=== PATIENT | male | born 1950 | race Caucasian/White ===

== ENCOUNTER 2018-03-19 08:43 | Outpatient (REF) | payer MEDICARE, SELFPAY ==
[2018-03-19 21:35] LABS: Cholesterol 165 mg/dL (50-200); HDL Cholesterol 70 mg/dL (40-60); LDL CHOLESTEROL 90 mg/dL (<100); Triglyceride 39 mg/dL (30-150)
== END 2018-03-19 08:44 ==
LOC: NCHCN 08:43
PROVIDERS: PCP Internal Medicine; Visit Provider Internal Medicine
DX: E78.5 Hyperlipidemia, unspecified (principal)
CPT/HCPCS: 80061; 83721

== ENCOUNTER 2018-06-25 10:23 | Outpatient (REF) | payer MEDICARE, SELFPAY ==
[2018-06-25 22:55] LABS: Anion Gap 6.6 mmol/L (3-11); BUN 22 mg/dL (7-18); CO2 29.4 mmol/L (21.0-32.0); CREATININE 1.06 mg/dL (0.70-1.30); Chloride 107 mmol/L (98-107); Glucose 86 mg/dL (70-100); Potassium 4.6 mmol/L (3.5-5.1); Sodium 143 mmol/L (136-145)
== END 2018-06-25 10:43 ==
LOC: NCHCN 10:23
PROVIDERS: PCP Internal Medicine; Visit Provider Internal Medicine
DX: I10 Essential (primary) hypertension (principal)
CPT/HCPCS: 80048

== ENCOUNTER 2019-01-14 10:13 | Outpatient (REF) | payer MEDICARE, SELFPAY ==
[2019-01-14 20:52] LABS: Abs Immature Grans 0.01 k/cumm (0.0-0.09); Absolute Basophil Count 0.03 k/cumm (0.0-0.2); Absolute Eosinophil Count 0.15 k/cumm (0.0-0.7); Absolute Monocyte Count 0.51 k/cumm (0.11-0.7); Absolute Neutrophil Count 3.56 k/cumm (1.2-6.7); Basophils % 0.5; Eosinophils % 2.7; HCT 40.2 % (40.0-50.0); HGB 13.4 g/dL (13.5-17.5); Immature Grans % 0.2; Lymphocytes % 24.7; Mean Corp. HGB Concentration 33.3 g/dL (32.0-36.0); Mean Corpuscular Hemoglobin 34.8 pg (27.0-33.0); Mean Corpuscular Volume 104.4 fL (80-95); Mean Platelet Volume 10.5 fL (8.0-11.0); Neutrophils % 62.9; Platelet Count 229 x1000/uL (130-400); RBC 3.85 m/cumm (4.50-6.00); RBC Distribution Width 13.4 % (11.8-14.1); White Blood Cell Count 5.66 k/cumm (4.4-10.8)
[2019-01-14 21:01] LABS: TSH 0.77 uIU/mL (0.358-3.74)
== END 2019-01-14 10:33 ==
LOC: NCHCN 10:13
PROVIDERS: PCP Internal Medicine; Visit Provider Internal Medicine
DX: R53.83 Other fatigue (principal)
CPT/HCPCS: 84443; 85025

== ENCOUNTER 2019-01-28 08:15 | Outpatient (REF) | payer MEDICARE, SELFPAY ==
[2019-01-28 22:16] LABS: Iron 53 ug/dL (50-175); Total Iron Binding Capacity 306 ug/dL (250-450); Transferrin Sat 17 % (20-55)
[2019-01-28 23:02] LABS: Ferritin 129 ng/mL (8-388); Vitamin B12 707 pg/mL (193-986)
== END 2019-01-28 08:35 ==
LOC: NCHCN 08:15
PROVIDERS: PCP Internal Medicine; Visit Provider Internal Medicine
DX: D64.9 Anemia, unspecified (principal)
CPT/HCPCS: 82607; 82728; 83540; 83550

== ENCOUNTER 2019-02-20 12:27 | Outpatient (REF) | payer MEDICARE, SELFPAY ==
[2019-02-20 21:37] LABS: HCT 38.9 % (40.0-50.0); HGB 13.3 g/dL (13.5-17.5); Mean Corp. HGB Concentration 34.2 g/dL (32.0-36.0); Mean Corpuscular Hemoglobin 34.9 pg (27.0-33.0); Mean Corpuscular Volume 102.1 fL (80-95); Mean Platelet Volume 10.5 fL (8.0-11.0); Platelet Count 221 x1000/uL (130-400); RBC 3.81 m/cumm (4.50-6.00); RBC Distribution Width 12.2 % (11.8-14.1); White Blood Cell Count 5.88 k/cumm (4.4-10.8)
[2019-02-20 21:44] LABS: Iron 133 ug/dL (50-175)
[2019-02-20 21:46] LABS: ALT 37 U/L (12-78); AST 28 U/L (15-37); Albumin 3.9 g/dL (3.4-5.0); Alkaline Phosphatase 67 U/L (46-116); Anion Gap 8.5 mmol/L (3-11); BUN 26 mg/dL (7-18); Bilirubin, Total 0.7 mg/dL (0.2-1.0); CO2 25.5 mmol/L (21.0-32.0); CREATININE 1.19 mg/dL (0.70-1.30); Calcium 9.2 mg/dL (8.5-10.1); Chloride 105 mmol/L (98-107); Glucose 125 mg/dL (70-100); Sodium 139 mmol/L (136-145); Total Protein 6.7 g/dL (6.4-8.2)
[2019-02-22 22:01] LABS: Tissue Transglutaminase Ab IgA <1.2 U/mL
== END 2019-02-20 12:47 ==
LOC: NCHCN 12:27
PROVIDERS: PCP Internal Medicine; Visit Provider Internal Medicine
DX: D64.9 Anemia, unspecified (principal); R19.7 Diarrhea, unspecified
CPT/HCPCS: 80053; 85027; 87329; 83516; 83540

== ENCOUNTER 2019-10-17 14:08 | Outpatient (REF) | payer MEDICARE, SELFPAY ==
[2019-10-17 20:53] LABS: Abs Immature Grans 0.01 k/cumm (0.0-0.09); Absolute Basophil Count 0.04 k/cumm (0.0-0.2); Absolute Eosinophil Count 0.22 k/cumm (0.0-0.7); Absolute Monocyte Count 0.73 k/cumm (0.11-0.7); Absolute Neutrophil Count 2.92 k/cumm (1.2-6.7); Basophils % 0.7; Eosinophils % 3.8; HCT 38.6 % (40.0-50.0); Immature Grans % 0.2 %; Lymphocytes % 31.5; Mean Corp. HGB Concentration 33.7 g/dL (32.0-36.0); Mean Corpuscular Hemoglobin 34.9 pg (27.0-33.0); Mean Corpuscular Volume 103.8 fL (80-95); Monocytes % 12.8; Platelet Count 250 x1000/uL (130-400); RBC 3.72 m/cumm (4.50-6.00); RBC Distribution Width 12.9 % (11.8-14.1); White Blood Cell Count 5.72 k/cumm (4.4-10.8)
[2019-10-17 21:00] LABS: Anion Gap 8.2 mmol/L (3-11); BUN 37 mg/dL (7-18); CO2 25.8 mmol/L (21.0-32.0); CREATININE 1.49 mg/dL (0.70-1.30); Calcium 8.6 mg/dL (8.5-10.1); Chloride 104 mmol/L (98-107); Estimated GFR 46.63 (mL/min/1.73m2); Glucose 89 mg/dL (74-106); Sodium 138 mmol/L (136-145)
[2019-10-17 21:38] LABS: Hemoglobin A1C 5.8 % (3.8-5.6)
[2019-10-21 10:01] LABS: PSA, Screening 1.3 ng/mL (0.0-6.5)
== END 2019-10-17 14:28 ==
LOC: NCHCN 14:08
PROVIDERS: PCP Internal Medicine; Visit Provider Internal Medicine
DX: D53.9 Nutritional anemia, unspecified (principal); R73.9 Hyperglycemia, unspecified; I10 Essential (primary) hypertension; Z12.5 Encounter for screening for malignant neoplasm of prostate
CPT/HCPCS: 80048; 84153; 83036; 85025

== ENCOUNTER 2019-10-21 09:41 | Outpatient (REF) | payer MEDICARE, SELFPAY ==
[2019-10-22 10:08] LABS: Anion Gap 8.6 mmol/L (3-11); BUN 32 mg/dL (7-18); CO2 27.4 mmol/L (21.0-32.0); CREATININE 1.29 mg/dL (0.70-1.30); Calcium 8.9 mg/dL (8.5-10.1); Chloride 106 mmol/L (98-107); Estimated GFR 55.06 (mL/min/1.73m2); Glucose 91 mg/dL (74-106); Potassium 4.6 mmol/L (3.5-5.1); Sodium 142 mmol/L (136-145)
== END 2019-10-21 10:01 ==
LOC: NCHCN 09:41
PROVIDERS: PCP Internal Medicine; Visit Provider Internal Medicine
DX: E87.5 Hyperkalemia (principal)
CPT/HCPCS: 80048

== ENCOUNTER 2020-10-05 16:06 | Outpatient (REF) | payer MEDICARE, SELFPAY ==
[2020-10-05 13:48] LABS: ALT 37 U/L (16-63); AST 29 U/L (15-37); Albumin 3.8 g/dL (3.4-5.0); Alkaline Phosphatase 59 U/L (46-116); Anion Gap 5.9 mmol/L (3-11); BUN 26 mg/dL (7-18); Bilirubin, Total 0.4 mg/dL (0.2-1.0); CO2 27.1 mmol/L (21.0-32.0); CREATININE 1.2 mg/dL (0.70-1.30); Calculated LDL 106 mg/dL (<100); Chloride 106 mmol/L (98-107); Cholesterol 180 mg/dL (<200); Estimated GFR 59.68 (mL/min/1.73m2); Glucose 149 mg/dL (74-106); HDL Cholesterol 63 mg/dL (40-60); Potassium 4.4 mmol/L (3.5-5.1); Sodium 139 mmol/L (136-145); Total Protein 6.5 g/dL (6.4-8.2); Triglyceride 56 mg/dL (<150)
[2020-10-05 13:49] LABS: Hemoglobin A1C 5.5 % (<5.7)
== END 2020-10-05 16:07 | disposition home or self-care (01) ==
LOC: NCHCN 16:06
PROVIDERS: PCP Internal Medicine; Visit Provider Internal Medicine
DX: R73.03 Prediabetes (principal); E87.5 Hyperkalemia; I10 Essential (primary) hypertension; E78.5 Hyperlipidemia, unspecified
CPT/HCPCS: 80053; 80061; 83036

== ENCOUNTER 2022-10-24 13:28 | Outpatient (REF) | payer MEDICARE, SELFPAY ==
[2022-10-24 15:42] LABS: HCT 40.8 % (40.0-50.0); HGB 13.9 g/dL (13.5-17.5); MCH 35.3 pg (27.0-33.0); MCHC 34.1 % (32.0-36.0); MCV 104 fL (80-95); MPV 10.2 fL (8.0-11.0); Platelet Count 253 10^3/uL (130-400); RBC 3.94 10^6/uL (4.36-5.78); RDW 12.8 % (11.8-14.1); RDW-SD 49.5 fL; WBC 8.91 10^3/uL (4.4-10.8)
[2022-10-24 16:08] LABS: Hemoglobin A1C 5.5 % (<5.7)
[2022-10-24 16:48] LABS: Anion Gap 8.1 mmol/L (3-11); BUN 21 mg/dL (7-18); CO2 26.9 mmol/L (21.0-32.0); CREATININE 1.2 mg/dL (0.70-1.30); Calcium 9.4 mg/dL (8.5-10.1); Calculated LDL 145 mg/dL (<100); Chloride 105 mmol/L (98-107); Cholesterol 225 mg/dL (<200); Estimated GFR 63.85 (mL/min/1.73m2); Glucose 92 mg/dL (74-106); HDL Cholesterol 62 mg/dL (40-60); Potassium 4.4 mmol/L (3.5-5.1); Sodium 140 mmol/L (136-145); Triglyceride 93 mg/dL (<150)
== END 2022-10-24 13:29 | disposition home or self-care (01) ==
LOC: NCHCN 13:28
PROVIDERS: PCP Internal Medicine; Visit Provider Internal Medicine
DX: D53.9 Nutritional anemia, unspecified (principal); I10 Essential (primary) hypertension; R73.03 Prediabetes; E78.5 Hyperlipidemia, unspecified
CPT/HCPCS: 80048; 80061; 85027; 83036

== ENCOUNTER 2023-04-18 13:23 | Outpatient (REF) | payer MEDICARE, SELFPAY ==
[2023-04-18 17:41] LABS: Calculated LDL 133 mg/dL (<100); Cholesterol 214 mg/dL (<200); HDL Cholesterol 67 mg/dL (40-60); Triglyceride 74 mg/dL (<150)
== END 2023-04-18 13:24 | disposition home or self-care (01) ==
LOC: NCHCN 13:23
PROVIDERS: PCP Internal Medicine; Visit Provider Internal Medicine
DX: E78.5 Hyperlipidemia, unspecified (principal)
CPT/HCPCS: 80061

== ENCOUNTER 2023-11-03 15:04 | Outpatient (REF) | payer MEDICARE, SELFPAY ==
[2023-11-03 14:38] LABS: HCT 40.7 % (40.0-50.0); HGB 13.8 g/dL (13.5-17.5); MCH 35.4 pg (27.0-33.0); MCHC 33.9 % (32.0-36.0); MCV 104 fL (80-95); MPV 10.6 fL (8.0-11.0); Platelet Count 223 10^3/uL (130-400); RDW 12.5 % (11.8-14.1); RDW-SD 48.3 fL; WBC 7.15 10^3/uL (4.4-10.8)
[2023-11-03 15:39] LABS: ALT 31 U/L (16-63); AST 33 U/L (15-37); Albumin 3.6 g/dL (3.4-5.0); Alkaline Phosphatase 73 U/L (46-116); Anion Gap 10.6 mmol/L (3-11); BUN 15 mg/dL (7-18); Bilirubin, Total 0.6 mg/dL (0.2-1.0); CO2 25.4 mmol/L (21.0-32.0); CREATININE 1.1 mg/dL (0.70-1.30); Calcium 9.1 mg/dL (8.5-10.1); Calculated LDL 93 mg/dL (<100); Chloride 107 mmol/L (98-107); Cholesterol 170 mg/dL (<200); Estimated GFR 70.44 (mL/min/1.73m2); Glucose 95 mg/dL (74-106); HDL Cholesterol 58 mg/dL (40-60); Potassium 4.3 mmol/L (3.5-5.1); Sodium 143 mmol/L (136-145); Total Protein 7.1 g/dL (6.4-8.2); Triglyceride 96 mg/dL (<150)
== END 2023-11-03 15:05 | disposition home or self-care (01) ==
LOC: NCHCN 15:04
PROVIDERS: PCP Internal Medicine; Visit Provider Internal Medicine
DX: Z00.00 Encounter for general adult medical examination without abnormal findings (principal)
CPT/HCPCS: 80053; 80061; 85027

== ENCOUNTER 2024-11-11 14:02 | Outpatient (REF) | payer MEDICARE, SELFPAY ==
[2024-11-11 21:27] LABS: Abs Immature Grans 0.01 10^3/uL (0.0-0.06); Absolute Basophil Count 0.06 10^3/uL (0.0-0.2); Absolute Eosinophil Count 0.12 10^3/uL (0.0-0.7); Absolute Lymphocyte Count 2.03 10^3/uL (1.2-3.4); Absolute Monocyte Count 0.71 10^3/uL (0.1-0.8); Absolute Neutrophil Count 3.64 10^3/uL (1.2-6.7); Basophils % 0.9 %; Eosinophils % 1.8 %; HCT 43.6 % (40.0-50.0); HGB 14.7 g/dL (13.5-17.5); Immature Grans % 0.2 %; Lymphocytes % 30.9 %; MCH 35.3 pg (27.0-33.0); MCHC 33.7 % (32.0-36.0); MCV 105 fL (80-95); MPV 10.3 fL (8.0-11.0); Monocytes % 10.8 %; Neutrophils % 55.4 %; Platelet Count 257 10^3/uL (130-400); RBC 4.17 10^6/uL (4.36-5.78); RDW 12.9 % (11.8-14.1); RDW-SD 49.9 fL; WBC 6.57 10^3/uL (4.4-10.8)
[2024-11-11 21:54] LABS: ALT 41 U/L (16-63); AST 40 U/L (15-37); Albumin 3.8 g/dL (3.4-5.0); Alkaline Phosphatase 77 U/L (46-116); Anion Gap 9.2 mmol/L (3-11); BUN 21 mg/dL (7-18); Bilirubin, Total 0.5 mg/dL (0.2-1.0); CO2 27.8 mmol/L (21.0-32.0); CREATININE 1.1 mg/dL (0.70-1.30); Calcium 9.4 mg/dL (8.5-10.1); Calculated LDL 95 mg/dL (<100); Chloride 107 mmol/L (98-107); Cholesterol 193 mg/dL (<200); Estimated GFR 70.01 (mL/min/1.73m2); Glucose 83 mg/dL (74-106); HDL Cholesterol 80 mg/dL (>or=40); Potassium 4.5 mmol/L (3.5-5.1); Sodium 144 mmol/L (136-145); TSH 1.69 uIU/mL (0.36-3.74); Total Protein 7.1 g/dL (6.4-8.2); Triglyceride 91 mg/dL (<150)
== END 2024-11-11 14:03 | disposition home or self-care (01) ==
LOC: NCHCN 14:02
PROVIDERS: PCP Internal Medicine; Visit Provider Internal Medicine
DX: I10 Essential (primary) hypertension (principal); D75.89 Other specified diseases of blood and blood-forming organs
CPT/HCPCS: 80053; 80061; 84443; 85025

== ENCOUNTER 2025-01-21 12:28 | Outpatient (REF) | payer MEDICARE, SELFPAY ==
[2025-01-21 18:46] LABS: Calculated LDL 99 mg/dL (<100); Cholesterol 189 mg/dL (<200); HDL Cholesterol 79 mg/dL (>or=40); Triglyceride 56 mg/dL (<150)
== END 2025-01-21 12:29 | disposition home or self-care (01) ==
LOC: NCHCN 12:28
PROVIDERS: PCP Internal Medicine; Visit Provider Internal Medicine
DX: E78.5 Hyperlipidemia, unspecified (principal)
CPT/HCPCS: 80061

== ENCOUNTER 2025-01-24 15:20 | Outpatient (REF) | payer MEDICARE, SELFPAY ==
[2025-01-24 15:32] LABS: Calculated LDL 91 mg/dL (<100); Cholesterol 189 mg/dL (<200); HDL Cholesterol 74 mg/dL (>or=40); Triglyceride 120 mg/dL (<150)
== END 2025-01-24 15:21 | disposition home or self-care (01) ==
LOC: NCHCN 15:20
PROVIDERS: PCP Internal Medicine; Visit Provider Internal Medicine
DX: E78.5 Hyperlipidemia, unspecified (principal)
CPT/HCPCS: 80061